=== PATIENT | female | born 1980 | race Caucasian/White ===

== ENCOUNTER → 2021-03-01 09:47 | Outpatient (CLI) | payer OTHER, SELFPAY ==
[2021-03-01 11:22] LABS: COVID19 -Nasal RAPID Negative (Negative)
== END ==
PROVIDERS: Visit Provider Specialist
DX: Z01.812 Encounter for preprocedural laboratory examination (principal); Z20.822 Contact with and (suspected) exposure to COVID-19
CPT/HCPCS: 87635; C9803

== ENCOUNTER 2021-03-02 06:40 | Day surgery (SDC) | payer OTHER, SELFPAY ==
[2021-02-25 12:09] VITALS: BMI 31.8
[2021-03-02] VITALS (7 sets, daily range): BP systolic 105–121; BP diastolic 59–80; PULSE 67–94; RESP 20–24; TEMP 36.5–37.4; O2SAT 95–99; BMI 31.8
--- NOTE | 2021-03-02 | PATH_ITS ---
[facility] Accession Number: [id number] . 01 Material submitted: . gallbladder - GALLBLADDER AND CONTENTS . 02 Diagnosis: Gallbladder and Contents: Acute and chronic (follicular) cholecystitis and cholelithiasis. One benign cystic duct lymph node (0/1). Stone is present within the gallbladder neck at gross examination. V 03/04/2021 1122 Local . 02 Electronically signed: . Martine Alvarado MD, Pathologist NPI- [id number] . 01 Gross description: . The specimen is received in formalin, labeled gallbladder and consists of a 10.0 x 3.0 x 2.8 cm previously disrupted gallbladder with a 0.3 cm in diameter cystic duct. The serosa is pink-purple, hemorrhagic and wrinkled. Opening reveals minimal green mucoid bile and two harris bosselated choleliths measuring 1.5 x 1.2 x 1.0 cm each. One cholelith is firmly lodged within the neck of the specimen. The mucosa harris-pink and trabeculated and the wall thickness measures 0.3 cm. A 0.3 x 0.2 x 0.2 cm harris-pink pericystic lymph node is identified. Business Analytics Manager sections are submitted, to include the en face cystic duct margin (blue) and pericystic lymph node, in cassette A1. ([id number]) /MRV 03/03/2021 1109 Local . 02 Pathologist provided ICD-10: K81.2, K80.60 . 02 CPT . 924106 Performed at: 01 [facility] [address] [place] [address] [address], [place], [place] [id number] MD Ino Azevedo MD Phone: [phone] Performed at: 02 [facility] [id number] [place] [id number] MD Lottie Uribe MD Phone: [phone]
[2021-03-02] MEDS: LACTATED RINGERS 1,000 ML 42 ML IV (07:34)
--- NOTE | 2021-03-02 07:53 | PM.PREOP ---
Pre-operative Note COVID-19 COVID-19 status: Negative Result date/Date tested (Pos, Neg/Pending): 03/01/21 Interval Note History & Physical reviewed/Exam performed by Physician: Yes Changes to H&P: No
[2021-03-02] MEDS: CEFAZOLIN 1 GM VIAL 2 GM IV (08:06)
--- NOTE | 2021-03-02 08:19 | SUR.OPER ---
Supine on padded OR bed, head on pillow, safety belt at thigh, bilateral arms on padded arm boards and <90 degrees abduction. Legs uncrossed. Padded footboard in place. gel pad under bilateral heels. Tape over blanket to secure lower legs.
[2021-03-02] MEDS: BUPIVACAINE 0.5% (PF) VIAL 30 ML INJ (08:43)
--- NOTE | 2021-03-02 09:40 | P.OP_ITS ---
Operative Date/Time/Diagnoses Date of procedure: 03/02/21 Time of procedure: 09:40 Pre-op diagnosis: Cholelithiasis cholecystitis chronic Post-op diagnosis: same (With hydrops of the gallbladder due to stone impacting the end of the gallbladder.) Procedure & Clinicians Procedure: Laparoscopic cholecystectomy Same procedure as scheduled: Yes Indications: Symptomatic gallbladder disease. Surgeon: Samuel Mary Click Yes if Unassisted: Yes Anesthesia Type: General Operative Notes Findings: Stone obstructing the outflow with the gallbladder causing hydrops. Closure Type: primary Specimen(s): other (Gallbladder and contents) Prosthetic devices, grafts, tissues, transplants, or devices: None Estimated Blood Loss (mL): 10 Blood products transfused: none Procedure in detail: The patient was placed supine on the operating room table and underwent general endotracheal anesthesia. The patient was prepped and draped in the usual fashion. Local anesthetic was infiltrated near the umbilicus and curvilinear incision made and carried down through fascia into the peritoneal cavity. Stay sutures of 0 Vicryl were placed in the fascia. A 12 mm port was placed. The abdomen was insufflated. The patient was repositioned. Local anesthetic was infiltrated in 3 areas under the right costal margin and 3 small incisions made followed by placing 3 5 mm ports under direct laparoscopic camera vision internally. The gallbladder was noted to be distended and I inserted a needle and aspirated what appeared to be fairly clear fluid from the gallbladder. This was consistent with hydrops. The visible top of the gallbladder was deformed and I was concerned that this might represent a polyp. It did not seem mobile. Therefore I chose to avoid grasping at this area should this be a polyp. The gallbladder was elevated and the end identified. There was a obvious stone wedged in the into the gallbladder. I dissected out the end of the gallbladder and identified the common bowel duct. The cystic duct looked rather short. The patient had multiple fibers some of which were vascular going to the gallbladder. I dissected these out and placed clips across all of them as the tissue was somewhat thickened. I only clipped those things that I could identify going only to the gallbladder. Once I had accomplished this and it was clear I could not identify very much of the cystic duct as it may have been quite short I chose to take the gallbladder down from the top. Using cautery I dissected it out from its bed in the liver. Bleeding was controlled as I went. Identified a posterior artery coming into the gallbladder near its end and placed clips across this area before dividing it. Now with only the I placed an 0 PDS loop just distal to the obstructing stone clearly on the cystic duct. Th ere did not appear to be any deformity the common bowel duct. Was transected beyond this tie and immediately placed in a bag. It was removed without difficulty through the umbilical port. There was no bleeding noted in the gallbladder fossa or bile leakage. I irrigated and suctioned the fluid from the right upper quadrant. I then removed all the ports. I injected additional local around the port sites. Port sites were all irrigated. The stay sutures at the umbilicus were elevated. A 2 0 PDS suture was placed between them. The Vicryl and PDS sutures were then tied. The skin in all areas was closed with interrupted 4 0 Vicryl subcuticular stitches. Steri-Strips and Mastisol were applied. Band-Aids were placed and the patient was awakened, extubated and taken to the recovery area in good condition. Complications: none Post-operative Condition: stable Disposition: PACU
[2021-03-02] MEDS: fentaNYL 100 MCG/2 ML INJ IV (09:45)
[2021-03-02] MEDS: OXYCODONE IR 5 MG TABLET PO ×2 (09:55→10:25)
[2021-03-02] MEDS: ACETAMINOPHEN 325 MG TABLET 650 MG PO (09:56)
--- NOTE | 2021-03-02 10:28 | SUR.PHASEII ---
Resting quietly, desires more pain medication before going home. Abdomen soft, bandaids CDI. Declined snack prior to PO medication. Call light given upon arrival to [facility]
--- NOTE | 2021-03-02 11:10 | SUR.PHASEII ---
1050 resting comfortably, arouses easily to voice, states that she is ready to go home. Pain 3/10, no nausea.
--- NOTE | 2021-03-02 11:17 | SUR.PHASEII ---
1110 WASHROOM ATTENDANT provided discharge care (IV and clothing)
== END 2021-03-02 11:10 | disposition home or self-care (01) ==
PROVIDERS: Referring Provider Specialist; Visit Provider Specialist
PROC: 0FT44ZZ Resection of Gallbladder, Percutaneous Endoscopic Approach (ICD-10-PCS; CPT 47562; principal; 2021-03-02 07:45)
DX: K80.12 Calculus of gallbladder with acute and chronic cholecystitis without obstruction (principal); K82.1 Hydrops of gallbladder; E11.9 Type 2 diabetes mellitus without complications; Z79.84 Long term (current) use of oral hypoglycemic drugs
CPT/HCPCS: 47562; J0690; J2250; J2405; J2704; J3010